=== PATIENT | female | born 1955 | race Caucasian/White ===

== ENCOUNTER 2023-02-23 07:00 | Outpatient (NON) | payer MEDICARE, SELFPAY | END 2023-02-23 07:01 | disposition home or self-care (01) | LOC: ANHLAB 02-24 12:57 | PROVIDERS: PCP Internal Medicine; Visit Provider Nurse Practitioner | DX: D03.59 Melanoma in situ of other part of trunk (principal) | CPT/HCPCS: 88305 ==

== ENCOUNTER 2023-03-04 08:00 | Outpatient (NON) | payer MEDICARE, SELFPAY | END 2023-03-04 08:01 | disposition home or self-care (01) | LOC: ANHLAB 03-05 15:07 | PROVIDERS: PCP Internal Medicine; Visit Provider Nurse Practitioner | DX: D03.9 Melanoma in situ, unspecified (principal) | CPT/HCPCS: 88305 ==

== ENCOUNTER 2023-04-01 10:43 | Outpatient (NON) | payer MEDICARE, SELFPAY | END 2023-04-01 10:44 | disposition home or self-care (01) | PROVIDERS: PCP Internal Medicine; Visit Provider Nurse Practitioner | DX: D22.5 Melanocytic nevi of trunk (principal) | CPT/HCPCS: 88305 ==

== ENCOUNTER 2023-06-01 14:54 | Outpatient (NON) | payer MEDICARE, SELFPAY | END 2023-06-01 14:55 | disposition home or self-care (01) | LOC: ANHLAB 06-02 14:56 | PROVIDERS: PCP Internal Medicine; Visit Provider Nurse Practitioner | DX: L82.1 Other seborrheic keratosis (principal) | CPT/HCPCS: 88305 ==

== ENCOUNTER 2025-10-16 14:11 | Emergency (ER) | payer MEDICARE, SELFPAY ==
--- NOTE | ~2025-10-16 | XR_ITS ---
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 Technique: 2 views obtained. Findings: The lungs are clear, no effusion. No pneumothorax. Heart is normal size. Mediastinal and hilar contours are within normal limits. Bony thorax no acute abnormality. Impression: No acute cardiopulmonary abnormality. Reviewed, dictated and finalized at location P. [facility]E SORTER Impression: No acute cardiopulmonary abnormality.
--- NOTE | 2025-10-16 14:14 | ECG_ITS ---
Test Date: 2025-10-16 14:18:58 Measurements Intervals [place] Rate: 66 P: 55 HI: 145 QRS: -28 QRSD: 105 T: 22 QT: 385 QTc: 405 Interpretive Statements SINUS RHYTHM WITH MARKED SINUS ARRHYTHMIA WITH VENTRICULAR PREMATURE COMPLEX LOW QRS VOLTAGE IN PRECORDIAL LEADS INCOMPLETE RIGHT BUNDLE BRANCH BLOCK BORDERLINE R WAVE PROGRESSION, ANTERIOR LEADS BORDERLINE T WAVE ABNORMALITY- ANT/INF LEADS BASELINE ARTIFACT- I, II, AVR, AVL BORDERLINE ECG No previous ECG available for comparison Electronically Signed On 10-16-2025 14:36:52 CARD GRINDER HELPER by Lance Tanner D.O.
[2025-10-16 14:33] LABS: Hematocrit 43.3 % (37.0-47.0); Hemoglobin 14.6 g/dL (12.0-15.0); Immature Granulocyte Percent A 0.2 % (0-0.5); Lymphocytes Absolute Auto 1.87 K/mm3 (0.9-3.2); Mean Corpuscular HGB Conc 33.7 g/dl (32-36); Mean Corpuscular Hemoglobin 32.8 pg (26-34); Mean Corpuscular Volume 97.3 fl (80-100); Nucleated Red Blood Cells Absolute Auto 0.000 K/mm3 (0.0-0.012); Nucleated Red Blood Cells Perc 0.0 % (0.0-0.2); Platelet Count Result 195 k/mm3 (150-375); Red Blood Count 4.45 M/mm3 (4.2-5.4); White Blood Count 5.9 K/mm3 (4.5-10.0)
[2025-10-16 14:39] VITALS: BP 136/58; PULSE 100; RESP 70; TEMP 36.5; O2SAT 100
--- NOTE | 2025-10-16 14:41 | ED_ITS ---
HPI - Chest Pain General Chief Complaint: Chest Pain <Nancy Gooden PA-C - Last Filed: 10/18/25 09:09> Stated Complaint: CP and jaw pain <Nancy Gooden PA-C - Last Filed: 10/18/25 09:09> Time Seen by Provider: 10/16/25 14:41 <Nancy Gooden PA-C - Last Filed: 10/18/25 09:09> Focused HPI: This is a 70 year old female that presents to the ER for an episode of chest pain. Reports associated nausea. 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 She did use her nitro spray prior to arrival. GENERAL: Well-appearing, well-nourished, and in no acute distress. HEAD: Normocephalic, atraumatic. CHEST: No respiratory distress. HEART: Regular rate NEURO: ?Alert and oriented x3. Patient screened in triage and initial orders placed.? ?Additional care and disposition to be based upon?diagnostic testing and treatment. <Nancy Gooden PA-C - Last Filed: 10/18/25 09:09> History of Present Illness HPI narrative: per HPI <Melisa Alfred MD - Last Filed: 10/16/25 18:40> Related Data Allergies/Adverse Reactions: Allergies Allergy/AdvReac Type Severity Reaction Status Date / Time iodine Allergy Severe HIVES Verified 10/16/25 14:13 amoxicillin Allergy Intermediate Hives Verified 10/16/25 14:13 erythromycin base Allergy Mild Rash Verified 10/16/25 14:13 SHELLFISH Allergy Intermediate Hives Uncoded 10/16/25 14:13 TESTOSTERONE (Generic AdvReac Intermediate SWELLING Uncoded 01/31/08 18:13 Allergy) <Nancy Gooden PA-C - Last Filed: 10/18/25 09:09> Review of Systems 2 Review of Systems: All systems reviewed & are unremarkable except as noted in HPI and below <Melisa Alfred MD - Last Filed: 10/16/25 18:40> Exam 2 Narrative: EXAMINATION OF ORGAN SYSTEMS/BODY AREAS: Constitutional: Vital signs per nursing GENERAL:No acute distress, non-toxic appearing. HEAD: Normal with no signs of head trauma. EYES: EOMI, conjunctiva normal ENT: Hearing grossly intact LUNGS: Nonlabored breathing. HEART: Regular rate and rhythm ABD: Soft, nontender to palpation EXT: Normal range of motion SKIN: No rashes or lesions. NEURO: Alert. No gross focal sensory or strength deficits. PSYCH: Normal affect <Melisa Alfred MD - Last Filed: 10/16/25 18:40> Course Vital Signs Vital signs: Vital Signs Temperature 97.7 F 10/16/25 14:39 Pulse Rate 100 10/16/25 14:39 Respiratory Rate 70 H 10/16/25 14:39 Blood Pressure 136/58 L 10/16/25 14:39 Pulse Oximetry 100 10/16/25 14:39 Oxygen Delivery Room Air 10/16/25 14:39 Temperature 97.7 F 10/16/25 14:39 Pulse Rate 63 10/16/25 19:01 Respiratory Rate 17 10/16/25 19:01 Blood Pressure 129/62 10/16/25 19:01 Pulse Oximetry 100 10/16/25 19:01 Oxygen Delivery Room Air 10/16/25 17:42 <Nancy Gooden PA-C - Last Filed: 10/18/25 09:09> Vital Signs Temperature 97.7 F 10/16/25 14:39 Pulse Rate 100 10/16/25 14:39 Respiratory Rate 70 H 10/16/25 14:39 Blood Pressure 136/58 L 10/16/25 14:39 Pulse Oximetry 100 10/16/25 14:39 Oxygen Delivery Room Air 10/16/25 14:39 Temperature 97.7 F 10/16/25 14:39 Pulse Rate 63 10/16/25 19:01 Respiratory Rate 17 10/16/25 19:01 Blood Pressure 129/62 10/16/25 19:01 Pulse Oximetry 100 10/16/25 19:01 Oxygen Delivery Room Air 10/16/25 17:42 <Melisa Alfred MD - Last Filed: 10/16/25 18:40> MDM MDM Narrative Medical decision making narrative: ED COURSE AND MEDICAL DECISION MAKINF presenting with chest pain. EKG done in triage negative for acute ischemic changes. Cardiac workup is initiated. EKG: Performed in triage and interpreted by me. Normal sinus rhythm. Rate 66. Normal axis. [place] normal. QRS duration normal. QTc normal. No pathologic Q waves. No ST segment elevation or depression to suggest acute ischemia. No RV strain pattern. HEART score is 4 with no acute ischemic changes on EKG and 2 negative troponins. Presentation not consistent with dissection or aneurysm without radiation of pain or pulse deficits. CXR negative for mediastinal widening. No abdominal pain or signs of sepsis that would be concerning for esophageal perforation or mediastinitis. No cardiomegaly or JVD to suggest pericardial effusion/tamponade. EKG - 12-Lead: Performed at 1754. Interpreted by me. Sinus rhythm. Rate 60. Normal axis. [place]-interval normal. QRS duration normal. QTc normal. No ST segment elevation or depression. T-wave normal. Impression: No EKG evidence of acute ischemia or dysrhythmia. On repeat evaluation just prior to discharge, the patient is no acute distress. I had a long discussion with the patient, offer her admission for Cardiology, and with shared decision making, she would like to go home with outpatient management. She was given clear return instructions by myself in person as well as on discharge paperwork. I did also let her know if she changes her mind she can always come back to the ER for admission. Patient agreeable to this, her is at bedside and present for this conversation. <Melisa Alfred MD - Last Filed: 10/16/25 18:40> Differential Diagnosis Differential Diagnosis: ACS, GERD, spasm, etc. <Melisa Alfred MD - Last Filed: 10/16/25 18:40> Lab Data Result diagrams: 10/16/25 14:19 10/16/25 14:19 <Nancy Gooden PA-C - Last Filed: 10/18/25 09:09> Labs: Lab Results 10/16/25 10/16/25 Range/Units 14:19 17:54 WBC 5.9 (4.5-10.0) K/mm3 RBC 4.45 (4.2-5.4) M/mm3 Hgb 14.6 (12.0-15.0) g/dL Hct 43.3 (37.0-47.0) % MCV 97.3 (80-100) fl MCH 32.8 (26-34) pg MCHC 33.7 (32-36) g/dl RDW 12.3 (11.5-14.5) % Plt Count 195 (150-375) k/mm3 MPV 11.1 H (7.4-10.4) fl Immature Gran % (Auto) 0.2 (0-0.5) % Neut % (Auto) 55.7 (45.5-73.1) % Lymph % (Auto) 31.9 (18.3-44.2) % [place] % (Auto) 10.4 H (2.6-8.5) % Eos % (Auto) 0.9 (0-4.4) % Baso % (Auto) 0.9 (0.2-1.2) % Lymph # (Auto) 1.87 (0.9-3.2) K/mm3 [place] # (Auto) 0.6 (0.1-0.6) K/mm3 Eos # (Auto) 0.1 (0-0.3) K/mm3 Baso # (Auto) 0.1 (0.0-0.1) K/mm3 Abs Immat Gran (auto) 0.01 (0.00-0.031) K/mm3 Absolute Neuts (auto) 3.3 (1.3-6.7) K/mm3 Absolute Nucleated RBC 0.000 (0.0-0.012) K/mm3 Nucleated RBC % 0.0 (0.0-0.2) % PT 12.8 (11.1-14.7) Seconds INR 0.9 APTT 27.2 (22.3-36.8) Seconds Sodium 138 (137-145) mmol/L Potassium 4.1 (3.4-5.0) mmol/L Chloride 104 (98-107) mmol/L Carbon Dioxide 26 (22-30) mmol/L Anion Gap 8 (4-12) mmol/L BUN 15 (7-17) mg/dL Creatinine 0.69 L (0.7-1.0) mg/dL Estim Creat Clear Calc 56 ml/min Estimated GFR > 60 (59 - ) Glucose 94 (65-110) mg/dL Calcium 9.4 (8.4-10.2) mg/dL Total Bilirubin 0.6 (0.2-1.3) mg/dL AST 24 (14-36) U/L ALT 20 (6-35) U/L Alkaline Phosphatase 61 (38-126) U/L Troponin I < 0.012 < 0.012 (0.000-0.034) ng/mL Total Protein 7.4 (6.3-8.2) g/dL Albumin 4.6 (3.5-5.1) g/dL Lipase 73 (23-300) U/L <Nancy Gooden PA-C - Last Filed: 10/18/25 09:09> Lab Results 10/16/25 10/16/25 Range/Units 14:19 17:54 WBC 5.9 (4.5-10.0) K/mm3 RBC 4.45 (4.2-5.4) M/mm3 Hgb 14.6 (12.0-15.0) g/dL Hct 43.3 (37.0-47.0) % MCV 97.3 (80-100) fl MCH 32.8 (26-34) pg MCHC 33.7 (32-36) g/dl RDW 12.3 (11.5-14.5) % Plt Count 195 (150-375) k/mm3 MPV 11.1 H (7.4-10.4) fl Immature Gran % (Auto) 0.2 (0-0.5) % Neut % (Auto) 55.7 (45.5-73.1) % Lymph % (Auto) 31.9 (18.3-44.2) % [place] % (Auto) 10.4 H (2.6-8.5) % Eos % (Auto) 0.9 (0-4.4) % Baso % (Auto) 0.9 (0.2-1.2) % Lymph # (Auto) 1.87 (0.9-3.2) K/mm3 [place] # (Auto) 0.6 (0.1-0.6) K/mm3 Eos # (Auto) 0.1 (0-0.3) K/mm3 Baso # (Auto) 0.1 (0.0-0.1) K/mm3 Abs Immat Gran (auto) 0.01 (0.00-0.031) K/mm3 Absolute Neuts (auto) 3.3 (1.3-6.7) K/mm3 Absolute Nucleated RBC 0.000 (0.0-0.012) K/mm3 Nucleated RBC % 0.0 (0.0-0.2) % PT 12.8 (11.1-14.7) Seconds INR 0.9 APTT 27.2 (22.3-36.8) Seconds Sodium 138 (137-145) mmol/L Potassium 4.1 (3.4-5.0) mmol/L Chloride 104 (98-107) mmol/L Carbon Dioxide 26 (22-30) mmol/L Anion Gap 8 (4-12) mmol/L BUN 15 (7-17) mg/dL Creatinine 0.69 L (0.7-1.0) mg/dL Estim Creat Clear Calc 56 ml/min Estimated GFR > 60 (59 - ) Glucose 94 (65-110) mg/dL Calcium 9.4 (8.4-10.2) mg/dL Total Bilirubin 0.6 (0.2-1.3) mg/dL AST 24 (14-36) U/L ALT 20 (6-35) U/L Alkaline Phosphatase 61 (38-126) U/L Troponin I < 0.012 < 0.012 (0.000-0.034) ng/mL Total Protein 7.4 (6.3-8.2) g/dL Albumin 4.6 (3.5-5.1) g/dL Lipase 73 (23-300) U/L <Melisa Alfred MD - Last Filed: 10/16/25 18:40> Imaging Data Radiologist's impression: ITS Impressions Chest X-Ray 10/16/25 15:05 Impression: No acute cardiopulmonary abnormality. <Nancy Gooden PA-C - Last Filed: 10/18/25 09:09> ITS Impressions Chest X-Ray 10/16/25 15:05 Impression: No acute cardiopulmonary abnormality. <Melisa Alfred MD - Last Filed: 10/16/25 18:40> Critical Care Time Critical Care Time Critical Care Time: No <Nancy Gooden PA-C - Last Filed: 10/18/25 09:09> Discharge Plan Discharge Clinical Impression: Chest pain Qualifiers: Chest pain type: unspecified Qualified Code(s): R07.9 - Chest pain, unspecified <Nancy Gooden PA-C - Last Filed: 10/18/25 09:09> Patient Disposition: Home <Nancy Gooden PA-C - Last Filed: 10/18/25 09:09> Condition: Stable <Nancy Gooden PA-C - Last Filed: 10/18/25 09:09> Instructions: Chest Pain (ED) <Nancy Gooden PA-C - Last Filed: 10/18/25 09:09> Additional Instructions: If you change your mind about admission, feel free to come back to the emergency room. Also please come back if you develop chest pain again, shortness of breath, nausea, diaphoresis, or anything else concerning. 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 <Nancy Gooden PA-C - Last Filed: 10/18/25 09:09> Patient Language: Sudanese <Nancy Gooden PA-C - Last Filed: 10/18/25 09:09> Prescriptions: New famotidine 20 mg tablet 20 mg PO DAILY Qty: 30 0RF alum-mag hydroxide-simeth [Maalox Advanced] 200-200-20 mg/5 mL suspension 10 ml PO QID PRN (Reason: dyspepsia) Qty: 200 0RF Rx Instructions: administer between meals and at bedtime <Nancy Gooden PA-C - Last Filed: 10/18/25 09:09> Follow-up/Referrals: Jennie,Fernando Sainz MD [Primary Care Provider] <Nancy Gooden PA-C - Last Filed: 10/18/25 09:09>
[2025-10-16 14:47] LABS: Alanine Aminotransferase 20 U/L (6-35); Albumin Level 4.6 g/dL (3.5-5.1); Alkaline Phosphatase 61 U/L (38-126); Anion Gap 8 mmol/L (4-12); Aspartate Amino Transferase 24 U/L (14-36); Bilirubin,Total 0.6 mg/dL (0.2-1.3); Blood Urea Nitrogen 15 mg/dL (7-17); Calcium 9.4 mg/dL (8.4-10.2); Carbon Dioxide 26 mmol/L (22-30); Chloride 104 mmol/L (98-107); Estimated CRCL calculation 56 ml/min; Estimated Glomerular Filt Rate > 60; Glucose 94 mg/dL (65-110); Lipase 73 U/L (23-300); Potassium 4.1 mmol/L (3.4-5.0); Sodium 138 mmol/L (137-145); Total Protein 7.4 g/dL (6.3-8.2)
[2025-10-16 14:53] LABS: INR 0.9; Prothrombin Time 12.8 Seconds (11.1-14.7)
[2025-10-16 14:54] LABS: Partial Thromboplastin Time 27.2 Seconds (22.3-36.8)
[2025-10-16] MEDS: ASPIRIN 81 MG CHEWABLE TABLET 324 MG PO (14:55)
[2025-10-16 14:57] LABS: Troponin I < 0.012 ng/mL (0.000-0.034)
--- OUTSIDE RECORDS SUMMARY | 2025-10-16 16:36 | XMS_ITS | Encounter Summary ---
Author Organization [facility] Address [address] [place] [address] Phone Care Team Providers Care Well Service Derrick Worker Name Role Phone Fernando Schneider MD Primary Care Provider [phone] Encounter Details Date Type Department Care Team (Late st Contact Info) Description 08/04/2018 Telephone [facility] Cardiology [address] 8[address] [place] [address] [place] [address] Caleb Chavez MD [address] [place] [address] Social History Tobacco Use Types Packs/Day Years Used Date Smoking Tobacco: Former Smokeless Tobacco: Never Alcohol Use Standard Drinks/Week Comments Yes 0 (1 standard drink = 0.6 oz pur e alcohol) Comments No Sex and Gender Information Value Date Recorded Sex Assigned at Not on file Legal Sex Female 2:06 AM [employer]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
--- OUTSIDE RECORDS SUMMARY | 2025-10-16 16:36 | XMS_ITS | Clinical Summary ---
Author Organization [facility] Building B Address [address] [place] [address] Care Team Providers Care Multimedia Journalist Name Role Phone Fernando Schneider MD Primary Care Provider [phone] Allergies Active Allergy Reactions Criticality Noted Date Comments Amoxicillin Hives,Swelling High 02/07/2024 Cat Dander Chest tightness,Cough,It aaliyah,Shortness of breath,Sneezing,Wh eezing High 06/02/2023 Dog Dander Anaphylaxis,Chest tightness,Nausea only,Shortness of breath,Syncope,Vis ion changes High 12/20/2002 Erythromycin Itching Low 01/11/2024 Insect Venom Swelling Medium 07/25/2020 Pt unsure of type of insect Medroxyprogesterone Unknown 06/18/2025 hormone Progesterone Hives,Shortness of breath High Provera Cp Hives,Shortness of breath High Shellfish Containing Products Rash Medium 06/18/2025 Shellfish Derived Hives,Swelling Medium Testosterone Unknown Low I am allergic to Male hormone in BCP Medications cycloSPORINE (RESTASIS) 0.05 % ophthalmic emulsion instill 1 drop by ophthalmic route every 12 hours into affected eye(s) 0 each 0 12/16/19 17 Active estradiol (VIVELLE-DOT) 0.1 mg/24 hr apply 1/3 patch by transdermal route every week 0 04/05/20 12 Active aspirin 81 mg tablet daily. 01/14/20 11 Active docusate sodium (COLACE) 100 mg capsuleIndicat ions:constipat ion TAKE 1 CAPSULE TWICE DAILY NEEDED. Active triamcinolone (KENALOG) 0.1 % ointment APPLY A THIN FILM AND GENTLY MASSAGE INTO RASH ON HANDS TWICE DAILY NEEDED. Not for face or groin. 09/28/20 17 Active ketoconazole (NIZORAL) 2 % shampoo Lather to scalp once daily for Psoriasis 120 mL 2 08/01/20 18 Active clobetasol (OLUX) 0.05 % topical foam APPLY EXTERNALLY TO THE SCALP EVERY DAY FOR PSORIASIS 50 g 05/23/20 19 Active estradioL (ESTRACE) 0.5 mg tablet 2 (two) times a week 07/03/20 22 Active PreviDent 5000 Booster Plus 1.1 % paste 11/10/19 24 Active levETIRAcetam (KEPPRA) 750 mg tabletIndicati ons:Generalize d tonic-clonic seizure (HCC) Take 1 tablet (750 mg total) by mouth 2 (two) times a day 180 tablet 3 12/25/19 25 Active isosorbide mononitrate ER (IMDUR) 30 mg 24 hr tablet Take 1 tablet in am and 2 tablets in pm. 270 tablet 3 02/07/20 25 Active levothyroxine (SYNTHROID) 75 mcg tablet TAKE ONE TABLET BY MOUTH EVERY MORNING WITH BREAKFAST 90 tablet 09/10/20 25 Active amLODIPine (NORVASC) 5 mg tablet Take 1 tablet (5 mg total) by mouth daily 90 tablet 3 09/19/20 25 Active omeprazole (PriLOSEC) 20 mg capsule TAKE 1 CAPSULE(20 MG) BY MOUTH DAILY 30 capsule 10/09/20 25 Active clobetasoL (TEMOVATE) 0.05 % external solution APPLY TOPICALLY TO THE SCALP TWICE DAILY NEEDED FOR RASH 09/19/20 25 Active nitroglycerin 400 mcg/spray spray Place 1 spray under the tongue every 5 (five) minutes as needed for chest pain 4.1 g 3 10/11/20 25 Active nitroglycerin 400 mcg/spray spray Place 1 spray under the tongue every 5 (five) minutes as needed for chest pain 4.1 g 3 09/12/20 24 025 Discontinued(R eorder) amLODIPine (NORVASC) 5 mg tablet Take 1 tablet (5 mg total) by mouth daily 90 tablet 3 10/11/20 24 025 Discontinued(R eorder) omeprazole (PriLOSEC) 20 mg capsule Take 1 capsule (20 mg total) by mouth daily 30 capsule 09/12/20 25 025 Discontinued Active Problems Problem Noted Date Diagnosed Date Hx of colonic polyp 12/08/2022 Overview (12/08/2022): Added automatically from request for surgery [id number] Coronary vasospasm 06/01/2022 Assessment & Plan (06/05/2024 12:31 PM CDT): Stable. Hyperlipidemia 03/02/2018 Assessment & Plan (06/05/2024 12:31 PM CDT): Check lipoprotein a Migraine equivalent 12/02/2017 Assessment & Plan (11/08/2024 8:24 PM BABY FORMULA MIXER): Scintillations without headache In addition, headaches preceded by visual disturbance could be migraine with aura. In the past, independent ice pick headaches Assessment & Plan (11/08/2023 7:55 PM BABY FORMULA MIXER): Scintillations without headache In addition, independent ice pick headaches Assessment & Plan (11/09/2022 1:31 PM BABY FORMULA MIXER): Scintillations without headache Assessment & Plan (11/06/2020 5:54 PM BABY FORMULA MIXER): Scintillations without headache Assessment & Plan (11/08/2019 4:15 PM BABY FORMULA MIXER): Scintillations without headache Assessment & Plan (11/09/2018 12:54 PM BABY FORMULA MIXER): Scintillations without headache Assessment & Plan (12/02/2017 8:58 AM BABY FORMULA MIXER): Scintillations without headache Eczema of hand 09/28/2017 Scalp psoriasis 08/02/2017 Snoring 11/24/2016 Thyroid activity decreased 11/05/2016 Assessment & Plan (06/05/2024 12:30 PM CDT): Check TSH. Migraine headache 11/05/2016 Chest discomfort 11/05/2016 Trochanteric bursitis 03/20/2016 Infectious warts 03/27/2015 Eczema 03/27/2015 Multiple benign melanocytic nevi 03/27/2015 Keratosis, senilis 03/27/2015 Abnormal electrocardiography 06/22/2014 Generalized tonic-clonic seizure 03/17/2014 Overview (02/05/2017): Generalized tonic-clonic seizure Assessment & Plan (11/08/2024 8:25 PM BABY FORMULA MIXER): Since 1 minute episodes of chemical smell could be due to a ictal phenomenon, increase Keppra to 750 mg twice a day. Con't high adherence Avoid sleep deprivation and excessive ETOH Assessment & Plan (06/05/2024 12:30 PM CDT): Continue Keppra. Assessment & Plan (11/08/2023 7:55 PM BABY FORMULA MIXER): Keppra 500 mg BID Con't high adherence Avoid sleep deprivation and excessive ETOH Last COVID-19 vaccine August 23, 2023 Assessment & Plan (11/09/2022 1:32 PM BABY FORMULA MIXER): Keppra 500 mg BID Con't high adherence Avoid sleep deprivation and excessive ETOH She had her 4th Pfizer COVID-19 vaccine on March 19, 2022. Assessment & Plan (11/06/2020 5:54 PM BABY FORMULA MIXER): Keppra 500 mg BID Con't high adherence Avoid sleep deprivation and excessive ETOH Patient will for next labs with Dr. Schneider COVID-19 pandemic discussed. Importance of social distancing was reviewed. Assessment & Plan (11/08/2019 4:15 PM BABY FORMULA MIXER): Keppra 500 mg BID Con't high adherence Avoid sleep deprivation and excessive ETOH Requested her recent labs from Dr. Schneider Assessment & Plan (11/09/2018 1:07 PM BABY FORMULA MIXER): Keppra 500 mg BID Con't high adherence Avoid sleep deprivation and excessive ETOH. Assessment & Plan (12/02/2017 8:59 AM BABY FORMULA MIXER): Keppra 500 mg BID Con't high adherence Requested last CBC from Dr. Schneider Avoid sleep deprivation and excessive ETOH. Chest pain 10/04/2012 Gastroesophageal reflux disease 06/21/2012 Ventricular premature beats 03/16/2011 Overview (02/10/2018): Description: Premature Ventricular Contractions Peripheral vascular disease 03/16/2011 Overview (02/10/2018): Description: Peripheral Vascular Disease Syncope 03/16/2011 Overview (02/10/2018): Description: Fainting (Syncope) Encounters Date Type Department Care Team Description 10/11/2025 10:00 AM BABY FORMULA MIXER Office Visit [facility] [address] [place] [address] Office [address] [place] [phone] Mehreen Bey NP Coronary vasospasm (Primary Dx) 10/11/2025 Telephone [facility] [address] [place] [address] [address] [place] [phone] Mehreen Bey NP from Last 3 Months Immunizations Immunization Administration Dates Next Due Influenza, Quad, Adjuvantate d, Intramuscular 08/25/2022 Influenza, Quadrivalent, Hig h Dose, Preservative Free, Intrr 08/04/2023,09/03/2021,09/01/2020 Influenza, Quadrivalent, Spl it, Preservative Free, Intramuscular 09/20/2017 Influenza, Trivalent, Adjuva nted, Intramuscular 09/01/2024,10/13/2019 Influenza, Trivalent, Preser vative Free, Intramuscular 09/18/2016,09/18/2016,08/01/2015,08/01 Pfizer SARS-CoV-2 Monovalent Vaccination (12+ Yrs) PURPLE 12/23/2020 Pneumococcal Conjugate PCV 13 09/01/2020 Pneumococcal Polysaccharide PPV23 09/03/2021,11/2014 Tdap 06/01/2015,11/01/2014 Surgical History Surgery Date Site/Laterality Comments APPENDECTOMY HYSTERECTOMY ANTERIOR AND POSTERIOR VAGINAL REPAIR 09/02/2022 CATARACT EXTRACTION EXTRACAPSULAR W/ INTRAOCULAR LENS IMPLANTATION 10/01/2022 - 10/31/2022 Bilateral IMPLANT 07/02/2022 - 07/31/2022 multiple BLEPHAROPLASTY 11/17/2023 Bilateral Cosmentic BULB- Dr. Russo Medical History Medical History Date Comments Thyroid disease Peptic ulceration Anemia Migraines Seizures (HCC) 03/2012 x1 History of bleeding disorder Cancer (HCC) Family History Medical History Relation Name Comments Basal cell carcinoma Father No Known Problems Mother Leukemia Paternal Grandmother Melanoma Paternal Grandmother Relation Name Status Comments Father Mother Paternal Grandmother Social History Tobacco Use Types Packs/Day Years Used Date Smoking Tobacco: Former Smokeless Tobacco: Never Tobacco Cessation:Counseling Given: Not Answered Alcohol Use Standard Drinks/Week Comments Yes 0 (1 standard drink = 0.6 oz pur e alcohol) AUDIT-C Answer Date Recorded Q1: How often do you have a drink containing alcohol? 2-3 times a week 03/30/2023 Q2: How many drinks containi ng alcohol do you have on a typical day when you are drinking? Patient does not drink Q3: How often do you have si x or more drinks on one occasion? Never 03/30/2023 PHQ-2 Answer Date Recorded PHQ-2 Total Score (If total score is 3 or more points, staff should administer the PHQ-9) 0 06/18/2025 Personal Safety Answer Date Recorded Have you ever been in or are you currently in a harmful physical or emotional relationship or is someone making you feel afraid or unsafe? Denies 02/18/2023 Comments No Sex and Gender Information Value Date Recorded Sex Assigned at Not on file Legal Sex Female 2:06 AM BABY FORMULA MIXER Gender Identity Female 11/19/2021 3:30 PM BABY FORMULA MIXER Sexual Orientation Straight 03/29/2019 11 :43 AM CDT Last Filed Vital Signs Vital Sign Reading Time Taken Comments Blood Pressure 110/62 10/11/2025 10:05 AM BABY FORMULA MIXER Pulse 67 10/11/2025 10:05 AM BABY FORMULA MIXER Temperature 36.5 C (97.7 F) 11/08/2024 10:54 AM BABY FORMULA MIXER Respiratory Rate 16 03/30/2023 10:09 AM CDT Oxygen Saturation 98% 10/11/2025 10:05 AM BABY FORMULA MIXER Inhaled Oxygen Concentration - - Weight 63.5 kg (140 lb) 10/11/2025 10:05 AM BABY FORMULA MIXER Height 162.6 cm (5' 4) 10/11/2025 10:05 AM BABY FORMULA MIXER Body Mass Index 24.03 10/11/2025 10:05 AM BABY FORMULA MIXER Plan of Treatment Health Maintenance Due Date Last Done Comments Hepatitis B Screening 1972 Zoster Vaccine (1 of 2) 2004 Osteoporosis Screening-Bone Density Scan 04/16/2023 04/16/2021 DTaP/Tdap/Td Vaccine (3 - Td or Tdap) 06/01/2025 06/01/2015, 11/01/2014 Covid-19 Vaccine (2024-12 6 season) 2025 09/01/2024, 08/04/2023, 03/19/2022, Additional history exists Influenza Vaccine (#1) 2025 , 08/04/2023, 08/25/2022, Additional history exists Breast Cancer Screening-Mammogram 10/23/2025 024, 04/15/2021 Depression Screening 06/18/2026 06/18/2025, 06/05/2024, 06/02/2023, Additional history exists Fall Risk Assessment 06/18/2026 06/18/2025, 06/05/2024, 06/02/2023, Additional history exists Well Visit 65+ 06/18/2026 06/18/2025, 0803/2024, 06/02/2023, Additional history exists Colon Cancer Screening-Colonoscopy 02/18/2033 02/18/2023, 01/05/2018, 11/24/2012 Hepatitis C Screening Completed 04/16/2021 Pneumococcal vaccine 65+ Completed 021, 09/01/2020, 11/01/2014 Colon Cancer Screening-CT Colonography Discontinued 02/18/2023, 01/05/2018, 11/24/2012 Colon Cancer Screening-DNA Stool Discontinued 02/18/2023, 01/05/2018, 11/24/2012 Colon Cancer Screening-FIT Discontinued 02/18, 01/05/2018, 11/24/2012 Colon Cancer Screening-Sigmoidoscopy Discontinued 02/18/2023, 01/05/2018, 11/24/2012 Procedures Procedure Name Priority Date/Time Associated Diagnosis Comments COLONOSCOPY 02/18/2023 8:38 AM CDT HEPATITIS C ANTIBODY Routine 04/16/2021 9:54 AM CDT Generalized tonic-clonic seizure (HCC) Hypothyroidism, unspecified type Mixed hyperlipidemia Routine general medical examination at a [facility] DEXA AXIAL SKELETON BONE DENSITY 1 OR MORE SITES Schedule Routine, Read Routine (OP Routine) 04/16/2021 SCREENING MAMMOGRAM 2D BILATERAL Schedule Routine, Read Routine (OP Routine) 04/15/2021 from Last 3 Months or Most Recently Relevant to Health Maintenance Results * COLONOSCOPY (02/18/2023 8:38 AM CDT) Anatomical Region Laterality Modality Other Narrative Procedure Note Kaleb Barnes MD - 02/18/2023 8:38 AM CDT ENDOSCOPY LAB Patient Name: Milena Bone Procedure Date: 02/18/2023 8:38 AM Date of : 1955 Admit Type: Outpatient Age: 67 Gender: Female Attending MD: Prabhu Barnes M.D. Room: [facility] ENDOSCOPY ROOM 03 Note Status: Finalized Procedure: Colonoscopy Indications: Colon cancer surveillance: Personal history ofcolonic polyps, Last colonoscopy: December 2017 when no polyps were seen Providers: Prabhu Barnes M.D. Referring MD: Fernando Schneider M.D. Medicines: Monitored Anesthesia Care Complications: No immediate complications. Estimated Blood Loss: Estimated blood loss: none. Procedure: Pre-Anesthesia Assessment: - Immediately prior to administration ofmedications, the patient was re-assessed for adequacy to receive sedatives. The benefits, risks and alternatives of theprocedure and sedation were discussed and informed consentwas obtained. All questions were answered. Please referto the signed informed consent document in the medical record. The scope was passed under direct vision.The [id number] was introduced through the anusand advanced to the cecum, identified by appendiceal orifice and ileocecal valve. The colonoscopy was performed without difficulty. The patient tolerated the procedure well. The quality of the bowel preparation was good. The quality of the bowel preparation was evaluated using the BBPS (BostonBowel Preparation Scale) with scores of: Right Colon = 3 (entire mucosa seen well with no residual staining, small fragments of stool or opaque liquid),Transverse Colon = 3 (entire mucosa seen well with no residual staining, small fragments of stool or opaqueliquid) and Left Colon = 2 (minor amount of residualstaining, small fragments of stool and/or opaque liquid, but mucosa seen well). The total BBPS score equals 8.The quality of the bowel preparation was good. Bowelprep was administered using a split dose. Findings: Multiple small and large-mouthed diverticula were found in thesigmoid colon and descending colon. The exam was otherwise without abnormality on direct and retroflexion views. No polyps seen. Impression: - Diverticulosis in the sigmoid colon and in the descending colon. - The examination was otherwise normal on directand retroflexion views. No polyps seen. Recommendation: - Repeat colonoscopy in 5-7 years forsurveillance. Electronically signed by Prabhu Barnes MD Prabhu Barnes M.D. 02/18/2023 9:14:00 AM Number of Addenda: 0 Note Initiated On: 02/18/2023 8:38 AM Kaleb Barnes MD ENDOSCOPY PROCEDURES Final Result * Hepatitis C antibody (04/16/2021 9:54 AM CDT) [facility] Hep C Ab <0.1 0.0 - 0.9 s/co ratio [facility] - 01 Comment: Negative: < 0.8 Indeterminate: 0.8 - 0.9 Positive: > 0.9 The CDC recommends that a positive HCV antibody result be followed up with a HCV Nucleic Acid Amplification test ([id number]). 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 office Historical Provider IMG DXA PROCEDURES Final Result * Screening Mammogram 2D Bilateral (04/15/2021) Anatomical Region Laterality Modality Breast Bilateral Mammography Narrative 04/15/2021 Pt had 6 [facility] Historical Provider MD ANAND MAMMO PROCEDURES Yelena l Result from Last 3 Months or Most Recently Relevant to Health Maintenance Insurance [place] [id number] MEDICARE [facility] [employer]OSS MEDICARE SUPPLEMENT MEDICARE [facility] MEDICARE [facility] MEDICARE SUPPLEMENT MEDICARE [facility] MEDICARE SUPPLEMENT Advance Directives For more information, please contact: [phone] * Full Code (Latest Code Status on File) Date Activated Date Inactivated Comments 02/18/2023 7:48 AM 02/18/2023 1:58 PM Care Teams Multimedia Journalist Relationship Specialty Start Date End Date Fernando Schneider MD PCP - General 12/01/17
[2025-10-16 17:42] VITALS: BP 111/88; PULSE 67; RESP 20; O2SAT 100
--- NOTE | 2025-10-16 17:42 | ECG_ITS ---
Test Date: 2025-10-16 17:54:16 Measurements Intervals [place] Rate: 60 P: 45 SD: 148 QRS: -25 QRSD: 97 T: 9 QT: 416 QTc: 418 Interpretive Statements SINUS RHYTHM POSSIBLE LEFT ATRIAL ENLARGEMENT INCOMPLETE RIGHT BUNDLE BRANCH BLOCK POSSIBLE LEFT VENTRICULAR HYPERTROPHY BORDERLINE R WAVE PROGRESSION, ANTERIOR LEADS BORDERLINE T WAVE ABNORMALITY- ANT/INF LEADS BASELINE ARTIFACT- I, III, AVR, AVL BORDERLINE ECG Compared to ECG 10/16/2025 14:18:58 NO SIGNIFICANT CHANGE Electronically Signed On 10-16-2025 20:53:20 COTTON CLEANER by Lance Tanner D.O.
[2025-10-16 18:24] LABS: Troponin I < 0.012 ng/mL (0.000-0.034)
--- OUTSIDE RECORDS SUMMARY | 2025-10-16 18:29 | XMS_ITS | Encounter Summary ---
Author Organization [facility] Address [address] [place] [address] Phone Care Team Providers Care Managed Care Liaison Name Role Phone Fernando Schneider MD Primary Care Provider [phone] Encounter Details Date Type Department Care Team (Late st Contact Info) Description 08/04/2018 Telephone [facility] Cardiology [address] [facility] [address] [place] [address] [place] [address] Caleb Chavez MD [address] [place] [address] Social History Tobacco Use Types Packs/Day Years Used Date Smoking Tobacco: Former Smokeless Tobacco: Never Alcohol Use Standard Drinks/Week Comments Yes 0 (1 standard drink = 0.6 oz pur e alcohol) Comments No Sex and Gender Information Value Date Recorded Sex Assigned at Not on file Legal Sex Female 2:06 AM RETAIL CUSTOMER SERVICE SPECIALIST Gender Identity Female 11/19/2021 3:30 PM RETAIL CUSTOMER SERVICE SPECIALIST Sexual Orientation Straight 03/29/2019 11 :43 AM CDT documented as of this encounter Plan of Treatment Not on file documented as of this encounter Visit Diagnoses Not on filedocumented in this encounter Care Teams Managed Care Liaison Relationship Specialty Start Date End Date Fernando Schneider MD PCP - General 12/01/17 documented as of this encounter
--- OUTSIDE RECORDS SUMMARY | 2025-10-16 18:29 | XMS_ITS | Clinical Summary ---
Author Organization [facility] Building [address] Address [address] [place] [address] Care Team Providers Care Clinical Manager Home Care Name Role Phone Fernando Schneider MD Primary Care Provider [phone] Allergies Active Allergy Reactions Criticality Noted Date [...] (12/08/2022): Added automatically from request for surgery [id number] Coronary vasospasm 06/01/2022 Assessment & Plan (06/05/2024 12:31 PM CDT): Stable. Hyperlipidemia 03/02/2018 Assessment & Plan (06/05/2024 12:31 PM CDT): Check lipoprotein a Migraine equivalent 12/02/2017 Assessment & Plan (11/08/2024 8:24 PM NIGHT STOCKER): Scintillations without headache In addition, headaches preceded by visual disturbance could be migraine with aura. In the past, independent ice pick headaches Assessment & Plan (11/08/2023 7:55 PM NIGHT STOCKER): Scintillations without headache In addition, independent ice pick headaches Assessment & Plan (11/09/2022 1:31 PM NIGHT STOCKER): Scintillations without headache Assessment & Plan (11/06/2020 5:54 PM NIGHT STOCKER): Scintillations without headache Assessment & Plan (11/08/2019 4:15 PM NIGHT STOCKER): Scintillations without headache Assessment & Plan (11/09/2018 12:54 PM NIGHT STOCKER): Scintillations without headache Assessment & Plan (12/02/2017 8:58 AM NIGHT STOCKER): Scintillations without headache Eczema of hand 09/28/2017 [...] seizure Assessment & Plan (11/08/2024 8:25 PM NIGHT STOCKER): Since 1 minute episodes of chemical smell could be due to a ictal phenomenon, increase Keppra to 750 mg twice a day. Con't high adherence Avoid sleep deprivation and excessive ETOH Assessment & Plan (06/05/2024 12:30 PM CDT): Continue Keppra. Assessment & Plan (11/08/2023 7:55 PM NIGHT STOCKER): Keppra 500 mg BID Con't high adherence Avoid sleep deprivation and excessive ETOH Last COVID-19 vaccine August 23, 2023 Assessment & Plan (11/09/2022 1:32 PM NIGHT STOCKER): Keppra 500 mg BID Con't high adherence Avoid sleep deprivation and excessive ETOH She had her 4th Pfizer COVID-19 vaccine on March 19, 2022. Assessment & Plan (11/06/2020 5:54 PM NIGHT STOCKER): Keppra 500 mg BID Con't high adherence Avoid sleep deprivation and excessive ETOH Patient will for next labs with Dr. Schneider COVID-19 pandemic discussed. Importance of social distancing was reviewed. Assessment & Plan (11/08/2019 4:15 PM NIGHT STOCKER): Keppra 500 mg BID Con't high adherence Avoid sleep deprivation and excessive ETOH Requested her recent labs from Dr. Schneider Assessment & Plan (11/09/2018 1:07 PM NIGHT STOCKER): Keppra 500 mg BID Con't high adherence Avoid sleep deprivation and excessive ETOH. Assessment & Plan (12/02/2017 8:59 AM NIGHT STOCKER): Keppra 500 mg BID Con't high adherence Requested last CBC from Dr. Schneider Avoid sleep deprivation and excessive ETOH. Chest pain 10/04/2012 Gastroesophageal reflux disease 06/21/2012 Ventricular premature beats 03/16/2011 Overview (02/10/2018): Description: Premature Ventricular Contractions Peripheral vascular disease 03/16/2011 Overview (02/10/2018): Description: Peripheral Vascular Disease Syncope 03/16/2011 Overview (02/10/2018): Description: Fainting (Syncope) Encounters Date Type Department Care Team Description 10/11/2025 10:00 AM NIGHT STOCKER Office Visit [facility] Cardiology [address] [place] [address] Office [address] [place] [phone] Mehreen Bey NP Coronary vasospasm (Primary Dx) 10/11/2025 Telephone [facility] [address] [place] [address] [address] [place] [phone] Mehreen Bey NP from Last 3 Months [...] on file Legal Sex Female 2:06 AM NIGHT STOCKER Gender Identity Female 11/19/2021 3:30 PM NIGHT STOCKER Sexual Orientation Straight 03/29/2019 11 :43 AM CDT Last Filed Vital Signs Vital Sign Reading Time Taken Comments Blood Pressure 110/62 10/11/2025 10:05 AM NIGHT STOCKER Pulse 67 10/11/2025 10:05 AM NIGHT STOCKER Temperature 36.5 C (97.7 F) 11/08/2024 10:54 AM NIGHT STOCKER Respiratory Rate 16 03/30/2023 10:09 AM CDT Oxygen Saturation 98% 10/11/2025 10:05 AM NIGHT STOCKER Inhaled Oxygen Concentration - - Weight 63.5 kg (140 lb) 10/11/2025 10:05 AM NIGHT STOCKER Height 162.6 cm (5' 4) 10/11/2025 10:05 AM NIGHT STOCKER Body Mass Index 24.03 10/11/2025 10:05 AM NIGHT STOCKER Plan of Treatment Health Maintenance Due Date [...] hyperlipidemia Routine general medical examination at a [facility] facility DEXA AXIAL SKELETON BONE DENSITY 1 [...] Female Attending MD: Prabhu Barnes M.D. Room: [facility] ROOM 03 Note Status: Finalized Procedure: [...] The scope was passed under direct vision.The [id number] was introduced through the anusand advanced to [...] Hepatitis C antibody (04/16/2021 9:54 AM CDT) [facility] Hep C Ab <0.1 0.0 - 0.9 s/co ratio [facility] - 01 Comment: Negative: < 0.8 Indeterminate: 0.8 - 0.9 Positive: > 0.9 The CDC recommends that a positive HCV antibody result be followed up with a HCV Nucleic Acid Amplification test (181879). Blood specimen (specimen) 04/16/2021 9:54 AM CDT 04/16/2021 Narrative [facility] - 04/17/2021 6:10 AM CDT Performed at: [address] [place] [id number] Barytes Grinder: Chris Fernandez PhD, Phone: [phone] Fernando Schneider MD LAB MICROBIOLOGY - GENERAL OR DERABLES Final Result [facility]CO [facility] - 01 * Dexa Axial Skeleton Bone Density 1 or 2 Site (04/16/2021) Anatomical Region Laterality Modality Body N/A Radiographic Luz ging Narrative 04/16/2021 Pt has with [employer] and [employer] office Historical Provider IMG DXA PROCEDURES Final Result * Screening Mammogram 2D Bilateral (04/15/2021) Anatomical Region Laterality Modality Breast Bilateral Mammography Narrative 04/15/2021 Pt had 6 [facility] Historical Provider MD ANAND MAMMO PROCEDURES Yelena l Result from Last 3 Months or Most Recently Relevant to Health Maintenance Insurance [place] [id number] MEDICARE [facility] [employer] MEDICARE SUPPLEMENT MEDICARE [facility] MEDICARE [facility] MEDICARE SUPPLEMENT MEDICARE [facility] MEDICARE SUPPLEMENT Advance Directives For more information, please contact: [phone] * Full Code (Latest Code Status on File) Date Activated Date Inactivated Comments 02/18/2023 7:48 AM 02/18/2023 1:58 PM Care Teams Clinical Manager Home Care Relationship Specialty Start Date End Date Fernando Schneider MD PCP - General 12/01/17
[2025-10-16] MEDS: PANTOPRAZOLE SODIUM IV 40 MG VIAL IV PUSH (18:41)
[2025-10-16 18:45] VITALS: BP 129/62; PULSE 63; RESP 16; O2SAT 99
[2025-10-16 19:01] VITALS: BP 129/62; PULSE 63; RESP 17; O2SAT 100
== END 2025-10-16 19:03 | disposition home or self-care (01) ==
PROVIDERS: Emergency Provider Emergency Medicine; PCP Internal Medicine
DX: R07.9 Chest pain, unspecified (principal); I49.3 Ventricular premature depolarization; I45.10 Unspecified right bundle-branch block; R94.31 Abnormal electrocardiogram [ECG] [EKG]
CPT/HCPCS: 36415; 71046; 80053; 83690; 84484; 85025; 85610; 85730; 93005; 96374; 99284; A9270; J2470